=== PATIENT | male | born 1965 | race Caucasian/White ===

== ENCOUNTER 2020-03-03 10:30 | Emergency (ER) | payer OTHER, MEDICAID ==
[~2020-03-03 10:30] MED LIST: CYCLOBENZAPRINE10 MG PO; PREDNISONE10 MG PO
[2020-03-03 11:29] LABS: BASO # 0.1 10*3/uL (0.0-0.1); BASO % 0.7 % (0.0-1.0); EOS # 0.2 10*3/uL (0.0-0.4); EOS % 2.8 % (1.0-4.0); LYMPH # 2.2 10*3/uL (1.3-4.4); LYMPH % 30.2 % (27.0-41.0); MEAN CELL VOLUME 80.9 fl (80.0-94.0); MEAN CORPUSCULAR HGB 28.7 pg (27.0-31.0); MEAN CORPUSCULAR HGB CONC 35.5 g/dl (33.0-37.0); MEAN PLATELET VOLUME 9.9 fl (9.6-12.3); MONO # 0.5 10*3/uL (0.1-1.0); MONO % 7.5 % (3.0-9.0); NEUT # 4.2 10*3/uL (2.3-7.9); NEUT % 58.7 % (47.0-73.0); PLATELET COUNT AUTOMATED 253 10*3/uL (130-400); RED BLOOD COUNT 5.44 10*6/uL (4.50-5.90); WHITE BLOOD COUNT 7.2 10*3/uL (4.8-10.8)
[2020-03-03 11:41] LABS: BUN 19 mg/dl (7-24); CHLORIDE 101 mmol/L (98-107); CREATININE 0.84 mg/dL (0.70-1.30); POTASSIUM 3.9 mmol/L (3.5-5.1); SODIUM 132 mmol/L (136-145)
== END 2020-03-03 12:28 | disposition home or self-care (01) ==
LOC: ED 10:30
PROVIDERS: Emergency Medicine
DX: M25.531 Pain in right wrist (principal); M79.631 Pain in right forearm; R79.1 Abnormal coagulation profile; Z88.0 Allergy status to penicillin; Z88.6 Allergy status to analgesic agent; Z79.01 Long term (current) use of anticoagulants